=== PATIENT | male | born 1985 | race Caucasian/White ===

== ENCOUNTER 2018-10-20 19:55 | Emergency (ER) | payer OTHER ==
[2018-10-20 20:04] VITALS: BP 126/71
--- NOTE | 2018-10-20 20:14 | ED Physician Documentation ---
PD HPI LOWER EXT INJURY - Stated complaint Stated Complaint: RT CALF INJ - Chief complaint Chief Complaint: Ext Problem - History obtained from History obtained from: Patient - History of Present Illness PD HPI LOW EXT INJURY LOCATION: Right (He was riding a skateboard, pushing off with his right leg and he felt a pop and now his leg feels like Jell-O. He has difficulty walking.) Review of Systems Constitutional: reports: Reviewed and negative Throat: reports: Reviewed and negative Cardiac: reports: Reviewed and negative Respiratory: reports: Reviewed and negative PD PAST MEDICAL HISTORY - Present Medications Home Medications: Ambulatory Orders Medication Instructions Recorded Confirmed Knee Scooter 1 unit TD ONCE #1 10/20/18 No Known Home Medications 10/20/18 10/20/18 - Allergies Allergies/Adverse Reactions: Allergies Allergy/AdvReac Type Severity Reaction Status Date / Time No Known Drug Allergies Allergy Verified 10/20/18 20:04 PD ED PE NORMAL - Vitals Vital signs reviewed: Yes - General General: Alert and oriented X 3, No acute distress - Extremities Extremities: Other (There is a palpable defect in the right Achilles tendon with no movement on Hendricks's test.) - Neuro Neuro: Alert and oriented X 3, Normal speech Results - Vitals Vitals: Vital Signs - 24 hr 10/20/18 20:02 Temperature 35.7 C L Heart Rate 91 Respiratory 14 Rate Blood Pressure 126/71 O2 Saturation 98 Oxygen O2 Source Room air Procedures - Splint (location) RLE splint Splint applied by: Tech Type of splint: Fiberglass, Short leg, Posterior, Other (in plantarflexion) Other: Patient tolerated well, No complications, Neurovascular intact, Crutches provided Departure - Departure Disposition: 01 Home, Self Care Clinical Impression: Rupture of right Achilles tendon Qualifiers: Encounter type: initial encounter Qualified Code(s): S86.011A - Strain of right Achilles tendon, initial encounter Condition: Good Record reviewed to determine appropriate education?: Yes Instructions: ED Tendon Rupture Achilles Prescriptions: Knee Scooter 1 unit TD ONCE #1 Comments: Tylenol as needed for pain, [place]. Return for new or worsening symptoms. Do not walk or bear weight on your right leg. Do not take the splint off. Do not get it wet. Forms: Activity restrictions
== END 2018-10-20 20:42 | disposition home or self-care (01) ==
LOC: ED 19:55
DX: S86.011A Strain of right Achilles tendon, initial encounter (principal); X50.9XXA Other and unspecified overexertion or strenuous movements or postures, initial encounter; Y93.51 Activity, roller skating (inline) and skateboarding
CPT/HCPCS: 29515; 99282; 99283

== ENCOUNTER 2018-11-14 08:55 | Day surgery (SDC) | payer OTHER ==
[2018-11-14] MEDS ORDERED: LACTATED RINGERS 1,000 ML IV ONE ×2 (09:14→11:54)
[2018-11-14] MEDS ORDERED: CEFAZOLIN SODIUM IN 0.9 % NACL 2 GM/100 ML BAG IV ONE (09:21)
--- NOTE | 2018-11-14 09:25 | ANESTHESIA ---
Pre-Anesthesia VS, & Labs - Diagnosis right achilles tendon tear - Procedure right achilles tendon repair Vital Signs: Temp Pulse Resp BP Pulse Ox 36.0 C L 83 16 134/87 H 96 11/14/18 09:03 11/14/18 09:03 11/14/18 09:03 11/14/18 09:03 11/14/18 09:03 Height 6 ft Weight (kg) 82.1 kg Body Mass Index 24.4 - NPO >8 hours Home Medications and Allergies Home Medications: Ambulatory Orders Ibuprofen 200 - 600 mg PO Q6H PRN 11/09/18 Ibuprofen 200 - 600 mg PO Q6H PRN 11/09/18 Allergies/Adverse Reactions: Allergies Allergy/AdvReac Type Severity Reaction Status Date / Time No Known Drug Allergies Allergy Verified 10/20/18 20:04 Anes History & Medical History - Anesthetic History Anesthesia Complications: reports: No previous complications Family history of Anesthesia Complications: Denies Family history of Malignant Hyperthermia: Denies - Medical History Cardiovascular: reports: None Pulmonary: reports: None Gastrointestinal: reports: None Urinary: reports: None Musculoskeletal: reports: None Endocrine/Autoimmune: reports: None Skin: reports: None Smoking Status: Never smoker - Surgical History Eyes Ears Nose Throat (EENT): Tonsil/Adenoidectomy, Other Orthopedic: Other Exam General: Alert, Oriented x3, Cooperative, No acute distress Dental: Other (implants, caps, veneers) Mouth Openin Fingerbreadth Neck Mobility: Normal Mallampati classification: II Thyromental Distance: greater than 6 cm Respiratory: Lungs clear, Normal breath sounds, No respiratory distress, No accessory muscle use Cardiovascular: Regular rate, Normal S1, Normal S2, No murmurs Plan Anesthesia Type: General, Spinal Consent for Procedure(s) Verified and Reviewed: Yes Code Status: Attempt Resuscitation ASA classification: 1-Healthy patient Is this case an emergency?: No
[2018-11-14] MEDS ORDERED: BUPIVACAINE 0.25%-EPI 1:200000 PF 30 ML VIAL ONE (09:30)
[2018-11-14] MEDS ORDERED: BUPIVACAINE 0.25%-EPI 1:200000 PF 30 ML VIAL SUBQ ONE (11:26)
[2018-11-14] MEDS ORDERED: PROPOFOL 200 MG/20 ML VIAL IVP ONE (11:30)
[2018-11-14] MEDS ORDERED: DEXAMETHASONE 4 MG/ML VIAL IVP ONE (11:30)
[2018-11-14] MEDS ORDERED: ONDANSETRON 4 MG/2 ML VIAL IVP ONE (11:30)
[2018-11-14] MEDS ORDERED: ROCURONIUM 50 MG/5 ML VIAL IVP ONE (11:30)
[2018-11-14] MEDS ORDERED: MIDAZOLAM 2 MG/2 ML VIAL IVP ONE (11:30)
[2018-11-14] MEDS ORDERED: LIDOCAINE-MPF 2% 5 ML VIAL IM ONE (11:30)
[2018-11-14] MEDS ORDERED: fentaNYL 250 MCG/5 ML VIAL IVP ONE (11:30)
[2018-11-14] MEDS ORDERED: HYDROmorphone 0.5 MG/0.5 ML SYRINGE IVP PRN (12:28)
[2018-11-14] MEDS ORDERED: HYDROcod/ACETAM 5/325 MG TABLET PO PRN (12:28)
[2018-11-14] MEDS ORDERED: ONDANSETRON 4 MG/2 ML VIAL IVP PRN (12:28)
[2018-11-14] MEDS ORDERED: KETOROLAC 15 MG/ML VIAL ONE (12:51)
[2018-11-14] MEDS ORDERED: HYDROcod/ACETAM 5/325 MG TABLET ONE (13:40)
[2018-11-14 14:50] VITALS: BP 114/74
--- NOTE | 2018-11-14 18:31 | OPERATIVE REPORT ---
DATE OF SERVICE: 11/14/2018 Physician: Lenin Doe MD PREOPERATIVE DIAGNOSIS: Right Achilles tendon rupture. POSTOPERATIVE DIAGNOSIS: Right Achilles tendon rupture. PROCEDURE PERFORMED: Primary repair of right Achilles tendon. OPERATING SURGEON: Lenin Doe MD ANESTHESIA: General, Abdullahi De Jesus. INDICATIONS FOR SURGERY: Patient is a 33-year-old male who was skateboarding about 3 weeks previous to this date had an injury of his Achilles. This was evaluated [facility] [employer], and ultima tely MRIs were done showing a tear in the tendon, which was complex. Recommendation to patient was t hat he undergo primary repair of his tendon. FINDINGS AT SURGERY: Examination in a prone position revealed that he had no plantar flexion with ca lf squeeze. At open surgery, he had hemorrhagic changes extending through the tendon and the tendon itself remained encased in a layer of overlying bruised, discolored, purplish scar tissue clear down almost to the calcaneal insertion. The tear itself was actually about 2.5 inches above the calcaneal insertion and was a complete tear. This seemed to conflict a little bit with the C-arm imaging that showed more proximal changes at the musculotendinous junction, which may have been hemorrhage in the tissue. This tendon ultimately was freed of scar tissue and able to be mobilized and with a primary repair completed. DESCRIPTION OF OPERATIVE PROCEDURE: The patient was taken to the operating room and was given a gene ral anesthetic. He was positioned prone. His leg was inspected and then shaved and prepared for yennifer sophia. It was elected to approach through a slightly posterolateral incision, initially only about 3 inches in length at the supposed area of rupture based on the MRI findings, which was more proximal t diaz where the rupture was actually found with extension of the wound distal, which ended up leaving t he patient with a fairly extensive 7-inch long incision, but allowed very good mobilization of the te ndon, identification of the injury and removal of scar tissue. The tendon ends were freed, and a Kra ckow stitch of #5 FiberWire was woven into the distal stump, and then the proximal, and then again on the more medial aspect of the distal, and then the more medial aspect of the proximal. The sutures were then sequentially tied down to effect an end-on-end well-opposed repair of tissue. A third sutu re was used in a simple [id number] repair as an insurance stitch. The area was irrigated thoroughl y, tested with the ankle being brought to beyond neutral, with no separation of elements of the repai r. The tourniquet was deflated. Cautery is used to control bleeding, and a very meticulous repair w as undertaken in soft tissue with deep Vicryl closure, followed by Monocryl closure of skin and then application of sterile dressings and a below-knee fiberglass cast in plantarflexion that was well pad ded and bivalved for swelling. The patient was then taken to the recovery room in stable condition. ESTIMATED BLOOD LOSS: Minimal. COMPLICATIONS: None. SPONGE AND NEEDLE COUNTS: Correct. TD: 11/14/2018 15:38
== END 2018-11-14 08:56 | disposition home or self-care (01) ==
LOC: SDS 08:55
PROVIDERS: ATTEND Orthopaedic Surgery
PROC: 0LQN0ZZ Repair Right Lower Leg Tendon, Open Approach (ICD-10-PCS; principal; 2018-11-14 11:00)
DX: S86.011A Strain of right Achilles tendon, initial encounter (principal); Z87.891 Personal history of nicotine dependence
CPT/HCPCS: 27650; A9270; J0690; J3010; J7120